=== PATIENT | female | born 1990 | race Two or more races ===

== ENCOUNTER 2021-04-27 14:00 | Emergency (ER) | payer SELFPAY ==
[~2021-04-27] VITALS: Ht 152.4 cm; Wt 59.0 kg
[2021-04-27 14:24] VITALS: BP 140/79
--- NOTE | 2021-04-27 15:58 | RAD ---
INDICATION: Reason: fall pain / Spl. Instructions: / History: . COMPARISON: None. TECHNIQUE: Axial CT images obtained through the lumbar spine. One or more of the following individualized dose reduction techniques were utilized for this examinat ion: 1. Automated exposure control; 2. Adjustment of the mA and/or kV according to patient size; 3 . Use of iterative reconstruction technique. FINDINGS: Lumbar spine alignment is well maintained without evidence of dislocation. No acute fracture line is seen. There is some mild degenerative changes including disc protrusions and early osteophyte formation yanna tebral body endplates as well as facet hypertrophy. This includes at L4-5 where there is a broad-base d posterior disc protrusion with anterior indentation of the thecal sac and mild central canal stenos is. Ligamentum flavum and facet hypertrophy. There is some mass effect on the lateral recesses. Mild bilateral encroachment on the inferior aspect of neural foramina without impingement of exiting nerve root. At L5-S1 there is facet hypertrophy as well as disc osteophyte complex which does not contribu te to significant narrowing of the central canal. There is minimal encroachment on the neural foramin a but they appear patent IMPRESSION: * No acute fracture or dislocation of the lumbar spine. * There is evidence of degenerative changes including some mild disc protrusions and osteophyte form ation. Electronically signed by: Nawaf Engle MD (04/27/2021 3:56 PM) [id number]
[2021-04-27] MEDS ORDERED: NAPR-514 PO (16:08)
[2021-04-27] MEDS ORDERED: CYCL10TA19 PO (16:08)
[2021-04-27] MEDS ORDERED: METH4TAB2 PO (16:08)
--- NOTE | 2021-04-27 16:08 | PHYS DOC ---
Past Medical History Past Surgical History: No Surgical History (IDANIA DEAL FLEECER) General Adult EDM: Chief Complaint: MECHANICAL FALL HPI: HPI: Patient is a 31 year old female with no significant medical history who presents the ED today complaining of 10 out of 10 low back pain that began today after she twisted but not fall. She states she was walking on her porch during the rain and she slipped but did not fall. Patient describes the pain as sharp and constant worse on range of motion to the back (IDANIA DEAL FLEECER) Review of Systems: Review of Systems: Constitutional: Denies fever or chills. [] Eyes: Denies change in visual acuity. [] HENT: Denies nasal congestion or sore throat. [] Respiratory: Denies cough or shortness of breath. [] Cardiovascular: Denies chest pain or edema. [] GI: Denies abdominal pain, nausea, vomiting, bloody stools or diarrhea. [] : Denies dysuria. [] Musculoskeletal: Reports low back pain Integument: Denies rash. [] Neurologic: Denies headache, focal weakness or sensory changes. [] ] Psychiatric: Denies depression or anxiety. [] (IDANIA DEAL FLEECER) Heart Score: C/O Chest Pain: N/A Risk Factors: Risk Factors: DM, Current or recent (<one month) smoker, HTN, HLP, family history of CAD, obesity. Risk Scores: Score 0 - 3: 2.5% MACE over next 6 weeks - Discharge Home Score 4 - 6: 20.3% MACE over next 6 weeks - Admit for Clinical Observation Score 7 - 10: 72.7% MACE over next 6 weeks - Early Invasive Strategies (IDANIA DEAL FLEECER) Allergies: Allergies: Allergies Coded Allergies Type Severity Reaction Last Updated Verified No Known Drug Allergies 04/27/21 No (IDANIA DEAL FLEECER) Physical Exam: PE: Constitutional: Well developed, well nourished, no acute distress, non-toxic appearance. [] HENT: Normocephalic, atraumatic, bilateral external ears normal, oropharynx moist, no oral exudates, nose normal. [] Eyes: PERRLA, EOMI, conjunctiva normal, no discharge. [] Neck: Normal range of motion, no tenderness, supple, no stridor. [] Cardiovascular:Heart rate regular rhythm, no murmur [] Lungs & Thorax: Bilateral breath sounds clear to auscultation [] Abdomen: Bowel sounds normal, soft, no tenderness, no masses, no pulsatile masses. [] Skin: Warm, dry, no erythema, no rash. [] Back: Diffuse paraspinal muscle tenderness to bilateral lumbar spine, no midline lumbar spine tenderness, no CVA tenderness. [] Extremities: No tenderness, no cyanosis, no clubbing, ROM intact, no edema. [] Neurologic: Alert and oriented X 3, normal motor function, normal sensory function, no focal deficits noted. [] Psychologic: Affect normal, judgement normal, mood normal. [] (IDANIA DEAL APRN) Current Patient Data: Labs: Laboratory Tests Test 04/27/21 14:55 POC Urine HCG, Qualitative Hcg negative (Negative) Vital Signs: Vital Signs Date Time Temp Pulse Resp B/P (MAP) Pulse Ox O2 Delivery O2 Flow Rate FiO2 04/27/21 14:24 98.6 108 16 140/79 (99) 100 98.6 (IDANIA DEAL APRN) EKG: EKG: [] (IDANIA DEAL APRN) Radiology/Procedures: Radiology/Procedures: []PROCEDURE: CT LUMBAR SPINE WO CONTRAST INDICATION: Reason: fall pain / Spl. Instructions: / History: . COMPARISON: None. TECHNIQUE: Axial CT images obtained through the lumbar spine. One or more of the following individualized dose reduction techniques were utilized for this examination: 1. Automated exposure control; 2. Adjustment of the mA and/or kV according to patient size; 3. Use of iterative reconstruction technique. FINDINGS: Lumbar spine alignment is well maintained without evidence of dislocation. No acute fracture line is seen. There is some mild degenerative changes including disc protrusions and early osteophyte formation vertebral body endplates as well as facet hypertrophy. This includes at L4-5 where there is a broad-based posterior disc protrusion with anterior indentation of the thecal sac and mild central canal stenosis. Liga mentum flavum and facet hypertrophy. There is some mass effect on the lateral recesses. Mild bilateral encroachment on the inferior aspect of neural foramina without impingement of exiting nerve root. At L5-S1 there is facet hypertrophy as well as disc osteophyte complex which does not contribute to significant narrowing of the central canal. There is minimal encroachment on the neural foramina but they appear patent IMPRESSION: * No acute fracture or dislocation of the lumbar spine. * There is evidence of degenerative changes including some mild disc protrusions and osteophyte formation. Electronically signed by: Prisca Starr MD (04/27/2021 3:56 PM) [id number] DICTATED and SIGNED BY: PRISCA STARR MD DATE: 04/27/21 [id number] (IDANIA DEAL APRN) Course & Med Decision Making: Course & Med Decision Making Pertinent Labs and Imaging studies reviewed. (See chart for details) This a 31-year-old female patient presenting to the ED today complaining of low back pain after slipping but not falling. Lumbar spine CT is negative for any acute findings. Discharged with Flexeril and naproxen and Medrol Dosepak. Ice elevation encouraged. Follow-up with PCP in a week, no cauda equina syndrome symptoms. (IDANIA DEAL APRN) Course & Med Decision Making I was the Attending physician on the above date of service of this patient. This patient was evaluated, examined, treated, and dispositioned from the emergency department by the mid-level practitioner. Although I was working at the time , no assistance was requested. Electronically signed, Brett Padgett DO (BRETT PADGETT DO) Steven Disclaimer: Steven Disclaimer: This electronic medical record was generated, in whole or in part, using a voice recognition dictation system. (IDANIA DEAL APRN) Departure Departure Impression: Primary Impression: Acute lumbosacral myofascial strain Qualified Codes: S39.012A - Strain of muscle, fascia and tendon of lower back, initial encounter Disposition: HOME / SELF CARE / HOMELESS Condition: STABLE Patient Instructions: Low Back Strain with [facility] Additional Instructions: You were evaluated in the emergency room for back pain, your CT of the back is negative for any acute findings. Take the prescribed medications as ordered. Follow-up with your doctor in 1 to 2 weeks. Please use a heating pad to your back Scripts Methylprednisolone (MEDROL) 4 Mg Tab.ds.pk 1 PKG PO UD, #1 PKG Prov: IDANIA DEAL APRN 04/27/21 Naproxen (NAPROXEN) 500 Mg Tablet 1 TAB PO BID for pain, #20 TAB 0 Refills Prov: IDANIA DEAL APRN 04/27/21 Cyclobenzaprine Hcl (CYCLOBENZAPRINE HCL) 10 Mg Tablet 1 TAB PO TID, #30 TAB Prov: IDANIA DEAL APRN 04/27/21 IDANIA DEAL APRN Apr 27, 2021 16:08 BRETT PADGETT DO Apr 28, 2021 16:16
[2021-04-27] MEDS ORDERED: NAPROXEN 500 MG TABLET PO ONE (16:09)
[2021-04-27] MEDS ORDERED: CYCLOBENZAPRINE 10 MG TABLET. PO ONE (16:15)
[2021-04-27] MEDS ORDERED: HYDROcodone/APAP 5/325MG 1 TAB TABLET PO ONE (16:15)
== END 2021-04-27 16:35 | disposition home or self-care (01) ==
LOC: ER 14:00
DX: S39.012A Strain of muscle, fascia and tendon of lower back, initial encounter (principal); X50.9XXA Other and unspecified overexertion or strenuous movements or postures, initial encounter; Y93.01 Activity, walking, marching and hiking; Y92.89 Other specified places as the place of occurrence of the external cause; Y99.8 Other external cause status
CPT/HCPCS: 72131; 81025; 99284